=== PATIENT | male | born 1960 | race Two or more races ===

== ENCOUNTER 2023-12-10 15:50 | Emergency (ER) | payer OTHER ==
[~2023-12-10] VITALS: Ht 188 cm; Wt 84.8 kg
[2023-12-10] MEDS ORDERED: OMEPRAZOLE MAGN20 MG PO (16:18)
[2023-12-10] MEDS ORDERED: AMOX-CLAV 875-1 EACH PO (17:09)
[2023-12-10] MEDS ORDERED: TETANUS & DIPHTHERIA TOX,ADULT 0.5 ML VIAL IM ONE (17:15)
[2023-12-10] MEDS ORDERED: TETANUS DIPHTHERIA TOX. ADSOR 5 ML VIAL IM ONE (17:17)
== END 2023-12-10 17:27 | disposition home or self-care (01) ==
LOC: ER 15:51
DX: S01.82XA Laceration with foreign body of other part of head, initial encounter (principal); Y93.18 Activity, surfing, windsurfing and boogie boarding; Y93.89 Activity, other specified; Y92.832 Beach as the place of occurrence of the external cause; S89.82XA Other specified injuries of left lower leg, initial encounter

== ENCOUNTER 2024-06-12 08:17 | Outpatient (CLI) | payer OTHER ==
[~2024-06-12 08:17] MED LIST: AMOX-CLAV 875-1 EACH PO; OMEPRAZOLE MAGN20 MG PO
== END 2024-06-12 08:20 | disposition home or self-care (01) ==
LOC: RAD 08:17
PROVIDERS: ATTEND Orthopaedic Surgery
DX: M25.572 Pain in left ankle and joints of left foot (principal)